=== PATIENT | male | born 1950 | race African-American/Black ===

== ENCOUNTER 2017-02-13 05:54 | Inpatient (IN) | payer BC, OTHER ==
[2017-01-22 10:32] VITALS: BMI 30.3
--- NOTE | 2017-02-12 08:45 | HP ---
Satellite [facility] - Chief Complaint Chief Complaint: left knee pain - Past Medical History Allergies/Adverse Reactions: Allergies Allergy/AdvReac Type Severity Reaction Status Date / Time No Known Drug Allergies Allergy Verified 01/22/17 10:18 - Current Medications Current Medications: Home Medications Medication Instructions Recorded Amlodipine Besylate [Norvasc -] 2.5 mg PO DAILY 06/30/13 Hydrochlorothiazide [Hctz -] 25 mg PO DAILY 06/30/13 Lisinopril [Prinivil -] 40 mg PO DAILY 06/30/13 Multivit-Min/FA/Lycopene/Lut 1 each PO DAILY 06/30/13 [Centrum Silver Tablet] Pravastatin Sodium [Pravachol -] 10 mg PO DAILY 06/30/13 Insulin (Levemir) [Levemir Flexpen 40 units SQ HS 11/24/14 -] Insulin NPH Human Isophane 13 unit SQ BID 01/22/17 [Novolin N] Oxycodone HCl/Acetaminophen 1 tab PO Q6H PRN 01/22/17 [Percocet 5-325 mg Tablet -] Satellite Physical Exam - Physical Examination General Appearance: Well Nourished, Well Developed, Alert & Oriented x3 ENT: Clear Lung: Normal air movement Heart: Regular rate & rhythm Extremities: Other (left knee- + swelling, + ttp, decr rom, nvi xrays show tricompartmental djd) Neurological: Intact, Alert, Oriented Satellite Impression/Plan - Impression/Plan Impression: left knee djd Operative Procedure: left nigel tkr Date to be Performed: 02/13/17
[2017-02-13] MEDS ORDERED: CELECOXIB 200 MG CAPSULE PO ONE (06:04)
[2017-02-13] MEDS ORDERED: CEFAZOLIN 2 GM in DEXTROSE 5%-WATER - 50 ML IVPB ONE (06:04)
[2017-02-13] MEDS ORDERED: GABAPENTIN 300 MG CAPSULE (FP) PO ONE (06:04)
[2017-02-13] MEDS ORDERED: TRANEXAMIC ACID 1000 MG/10 ML VIAL IVPUSH ONE (06:04)
[2017-02-13] MEDS ORDERED: oxyCODONE HCL 10 MG SUSTAINED ACTING TABLET PO ONE (06:04)
[2017-02-13] MEDS ORDERED: VANCOMYCIN 1,000 MG VIAL (RESTRICTED TO ID ONLY) ONE (07:09)
[2017-02-13] MEDS ORDERED: ceFAZolin SODIUM 1 GM VIAL ONE ×2 (07:09→07:47)
[2017-02-13] MEDS ORDERED: BUPIVACAINE HCL/PF 0.5% (5MG/ML) 10 ML VIAL ONE (07:41)
[2017-02-13] MEDS ORDERED: ONDANSETRON 4 MG/2 ML VIAL ONE (07:47)
[2017-02-13] MEDS ORDERED: PROPOFOL 20 ML ONE ×2 (07:47)
[2017-02-13] MEDS ORDERED: DEXAMETHASONE SOD PHOSPHATE 4 MG/1 ML VIAL ONE (07:47)
[2017-02-13] MEDS ORDERED: MIDAZOLAM HCL 2 MG/2 ML SINGLE DOSE VIAL ONE ×2 (07:48→09:16)
[2017-02-13] MEDS ORDERED: ONDANSETRON 4 MG/2 ML VIAL IVPB PRN (10:14)
[2017-02-13] MEDS ORDERED: MAGNESIUM HYDROX 2400MG/30ML ORAL SUSPENSION 30 ML CUP PO PRN (10:14)
[2017-02-13] MEDS ORDERED: MAG HYDROX/AL HYDROX/SIMETH 30 ML UNIT-DOSE CUP PO PRN (10:14)
[2017-02-13] MEDS ORDERED: LACTATED RINGERS SOLUTION 1,000 ML IV SCH (10:15)
--- NOTE | 2017-02-13 10:17 | OP ---
Operative Note - Note: Operative Date: 02/13/17 (christin) Pre-Operative Diagnosis: left knee djd Operation: left nigel tkr Post-Operative Diagnosis: Same as Pre-op Surgeon: Pilo Bragg Historical Guide: Casimiro Chiu) Anesthesiologist/SYNTHETIC GEM PRESS OPERATOR: Crystal Mejia Anesthesia: Spinal, Local Specimens Removed: bone fragments Estimated Blood Loss (mls): 50 (tourniquet) Operative Report Dictated: Yes
[2017-02-13] MEDS ORDERED: oxyCODONE HCL 5 MG TABLET PO PRN (11:19)
[2017-02-13] MEDS: ACETAMINOPHEN 325 MG TABLET (FP) PO SCH ×3 (11:35→23:12)
[2017-02-13] MEDS: INSULIN SLIDING SCALE (NOVOLOG) 1 VIAL SQ SCH ×3 (13:05→21:31)
[2017-02-13] MEDS ORDERED: INSULIN (NOVOLOG) ASPART 100 UNITS/ML 10ML VIAL ONE ×2 (16:11→21:27)
[2017-02-13] MEDS: CEFAZOLIN 2 GM/D5W 50 ML IVPB SCH ×2 (16:14→23:11)
--- NOTE | 2017-02-13 16:37 | OP ---
DATE OF OPERATION: 02/13/2017 PREOPERATIVE DIAGNOSIS: Degenerative joint disease, left knee. POSTOPERATIVE DIAGNOSIS: Degenerative joint disease, left knee. PROCEDURE: Left total knee replacement with robotic-assisted navigation (MAKOplasty). SURGICAL ATTENDING: Pilo Bragg MD DONOR RECRUITER: Casimiro Chiu MD and HUMAIRA Mortensen. ANESTHESIA: Regional and spinal. CLOSURE: A Triathlon knee system with a 4 femur, 5 tibia, 11 polyethylene, 38 patella, a Corkscrew anchor for patella tendon. ESTIMATED BLOOD LOSS: Negligible. TOURNIQUET TIME: Approximately 80 minutes. COMPLICATIONS: None. CONDITION TO RECOVERY ROOM: Stable condition. DESCRIPTION OF OPERATIVE PROCEDURE: Patient was taken to the operating room on February 13, 2017. Regional and spinal anesthesia was administered by the anesthesiologist. IV Kefzol and TXA were administered prophylactically prior to the case. A well-padded pneumatic tourniquet was placed on the left proximal thigh. Left lower extremity was prepped and draped in the usual sterile fashion. A midline longitudinal incision about 12 cm was incised centered over the patella. Hemostasis achieved with Bovie cautery. This was done after the leg was exsanguinated with an Esmarch, and the tourniquet was inflated to 175 mmHg. Sharp dissection was carried down to the level of the extensor mechanism which should be sufficient for to perform the procedure. Medial parapatellar arthrotomy was then performed, exposing the knee joint. The patella was inverted. The knee was flexed up. A subperiosteal dissection was done on the anteromedial proximal tibia until the knee was able to be brought forward. This was facilitated by taking the menisci and the cruciate ligaments. There was a large free ossicle within the body of the patella tendon. This was dissected out flush with the bone, preserving as much of the patella tendon as possible. Checkpoints were placed both in the femur and the tibia. Two bicortical pins were drilled in the femur anterior to posterior, proximal to the knee joint, through the incision already made. Two pins were placed 1 handbreadth below the tibial tubercle through 2 small stab incisions. Two of these pins were fastened to the navigation arrays. The knee was registered with the navigation device with center of rotation of the hip, medial and lateral malleoli, multiple points both on the femur and the tibia. Proper registration was confirmed by "popping the bubbles." The osteophytes were then removed. Tensioning in both flexion and extension was performed, and using this data, we are able to manipulate the virtual position of the components to optimize and equalize gaping in both extension and in flexion. The robot was then brought into the field and was registered and was then used to make the cuts on the tibia and the femur. Spacer blocks were used in flexion and extension to confirm equal tension with 11-mm insert. The number 4 box was used to cut the femur notch. A trial number 4 femoral component was malleted into place. A number 5 tibial component with an 11-mm insert was inserted, and the knee was taken through a range of motion to allow the component to "find itself." It was then clipped into place and confirmed to be in the ideal position based on the navigation device. All the navigation arrays and checkpoints were removed. The patella was calibrated for thickness and osteotomized down to the appropriate level. A 38 lollipop was used to drill the lug holes in the patella, and a trial component was applied. The knee was taken through a range of motion, found to go full extension to full flexion with excellent tensioning and stability throughout. Trial components were removed. The keel was made in the tibia. The real component was then cemented in using modern generation cement techniques with antibiotic cement. The knee was post-antibiotic irrigated. The knee was thoroughly inspected to remove any excess cement. The knee was tensioned in extension to allow the cement to compress. The real polyethylene was then malleted and clipped into place. Range of motion, stability, and tracking of the patella was as described earlier to be excellent. The knee was post-antibiotic irrigated again. Vancomycin powder was placed into the wound. The parapatellar arthrotomy was closed using No. 1 Vicryl interrupted suture. A corkscrew anchor was placed into the tibial tubercle and used to adjuvant fixate the patella insertion as part of it needed to be taken down to remove the ossicle. Range of motion of the knee into full extension revealed good tension on the patella tendon. The subcutaneous was closed in 0 and 2-0 Vicryl, 3-0 Monocryl subcuticular, with skin glue for the skin, 4-0 undyed Vicryl for the pin sites. All checkpoints and pins were removed. A sterile pressure dressing was placed on the knee. X-ray revealed good position of the components. Patient was awakened from anesthesia and transferred to recovery room in stable condition. No complications. Estimated blood loss: Negligible. Tourniquet time approximately 80 minutes. Cody [id number]
[2017-02-13] MEDS: oxyCODONE HCL 5 MG TABLET PO PRN (20:13)
[2017-02-13] MEDS: oxyCODONE HCL 10 MG SUSTAINED ACTING TABLET PO SCH (21:18)
[2017-02-13] MEDS: SENNOSIDES/DOCUSATE COMBO (SENNA PLUS) TABLET (UD) PO SCH (21:18)
[2017-02-13] MEDS: GABAPENTIN 300 MG CAPSULE (FP) PO SCH (21:18)
[2017-02-13] MEDS: INSULIN DETEMIR 100 UNITS/ML MDV SQ SCH (21:30)
[2017-02-13] MEDS ORDERED: INSULIN NPH HUMAN ISOPHANE 20 UNIT SQ SCH (22:00)
[2017-02-13] MEDS ORDERED: INSULIN SQ SCH (22:00)
[2017-02-13] MEDS ORDERED: INSULIN NPH HUMAN ISOPHANE SQ SCH (22:00)
[2017-02-14] MEDS: oxyCODONE HCL 5 MG TABLET PO PRN ×2 (05:12→14:03)
[2017-02-14] MEDS: ACETAMINOPHEN 325 MG TABLET (FP) PO SCH ×4 (05:12→23:27)
[2017-02-14] MEDS: INSULIN SLIDING SCALE (NOVOLOG) 1 VIAL SQ SCH ×4 (06:57→21:50)
[2017-02-14] MEDS: ASPIRIN 325 MG TABLET PO SCH (08:22)
--- NOTE | 2017-02-14 08:26 | PN ---
Progress Note (short form) - Note Progress Note: Ortho Pt seen and examined s/p left nigel tkr pod #1 Selected Entries 02/14/17 06:00 Temperature 98.6 F Pulse Rate 81 Respiratory 18 Rate Blood Pressure 162/80 dressing c/d/i, calf soft ,nt rom 0-50, nvi a/p PT dvt ppx pain control d/c to rehab tomorrow if stable
[2017-02-14 08:46] LABS: MCH 30.8 pg (25.7-33.7); MCHC 33.4 g/dl (32.0-35.9); MEAN CELL VOLUME 92.1 fl (80-96); MEAN PLT VOLUME 9.2 fl (7.5-11.1); PLATELET COUNT 237 K/MM3 (134-434); RDW 13.4 % (11.9-15.9); WHITE BLOOD COUNT 14.8 K/mm3 (4.0-10.8)
[2017-02-14] MEDS: SENNOSIDES/DOCUSATE COMBO (SENNA PLUS) TABLET (UD) PO SCH ×2 (09:27→21:48)
[2017-02-14] MEDS: LISINOPRIL 20 MG TABLET (FP) PO SCH (09:27)
[2017-02-14] MEDS: oxyCODONE HCL 10 MG SUSTAINED ACTING TABLET PO SCH ×2 (09:28→21:49)
[2017-02-14] MEDS: amLODIPine BESYLATE 2.5 MG TABLET (FP) PO SCH (09:29)
[2017-02-14] MEDS: PANTOPRAZOLE 40 MG TABLET (FP) PO SCH (09:29)
[2017-02-14] MEDS: MULTIVITAMINS (DAILY MVI) TABLET (FP) PO SCH (09:29)
[2017-02-14] MEDS: GABAPENTIN 300 MG CAPSULE (FP) PO SCH ×2 (09:30→21:49)
[2017-02-14] MEDS: HYDROCHLOROTHIAZIDE 25 MG TABLET (FP) PO SCH (09:30)
[2017-02-14] MEDS ORDERED: PRAVASTATIN SODIUM 10 MG PO SCH (10:00)
[2017-02-14] MEDS ORDERED: PATIENT'S OWN MEDICATION (NON-FORMULARY) (Lisinopril [Prinivil -] 40 MG) PO SCH (10:00)
--- NOTE | 2017-02-14 11:11 | PN ---
Progress Note (short form) - Note Progress Note: 66M POD1 s/p left TKR under spinal anesthetic with adductor canal and selective tibial blocks for post operative pain control. Pt is doing well, states that pain is well controlled, reports no anesthetic complications. Sensory and motor function is intact in both lower extremities.
[2017-02-14] MEDS ORDERED: INSULIN (NOVOLOG) ASPART 100 UNITS/ML 10ML VIAL ONE ×2 (16:48→21:46)
[2017-02-14] MEDS: INSULIN DETEMIR 100 UNITS/ML MDV SQ SCH (21:50)
[2017-02-15 05:55] VITALS: BP 129/92; PULSE 90; TEMP 99.4
[2017-02-15] MEDS: ACETAMINOPHEN 325 MG TABLET (FP) PO SCH ×2 (06:05→11:54)
[2017-02-15] MEDS ORDERED: INSULIN (NOVOLOG) ASPART 100 UNITS/ML 10ML VIAL ONE (06:50)
[2017-02-15] MEDS: oxyCODONE HCL 5 MG TABLET PO PRN ×2 (06:53→12:12)
[2017-02-15] MEDS: INSULIN SLIDING SCALE (NOVOLOG) 1 VIAL SQ SCH ×2 (06:54→11:59)
[2017-02-15] MEDS: ASPIRIN 325 MG TABLET PO SCH (08:25)
--- NOTE | 2017-02-15 08:34 | PN ---
Progress Note (short form) - Note Progress Note: Ortho Pt seen and examined s/p left nigel tkr pod #2 Selected Entries 02/15/17 05:53 Temperature 99.4 F Pulse Rate 90 Respiratory 18 Rate Blood Pressure 129/92 Laboratory Tests 02/14/17 07:51 WBC 14.8 H Hgb 14.0 Hct 41.9 Plt Count 237 dressing c/d/i, calf soft ,nt rom 0-70, nvi a/p PT dvt ppx pain control d/c to rehab today f/u in 1 week
--- NOTE | 2017-02-15 08:35 | DS ---
Physical Examination Vital Signs: Vital Signs Temperature 99.4 F 02/15/17 05:53 Pulse Rate 90 02/15/17 05:53 Respiratory Rate 18 02/15/17 05:53 Blood Pressure 129/92 02/15/17 05:53 O2 Sat by Pulse Oximetry (%) 94 L 02/15/17 05:53 Labs: CBC, BMP 02/14/17 07:51 Discharge Summary Reason For Visit: OSTEOARTHRITIS Procedures: Principal: s/p left nigel tkr Hospital Course: admitted for elective left nigel tkr, uneventful post-op, stable for d/c Condition: Good - Instructions Diet, Activity, Other Instructions: Post-op Instructions-Total Knee Replacement Call the office for a follow-up appointment in 1 week - [phone] Aspirin 325mg daily for 6 weeks. Pain medication was sent into your pharmacy. Apply Graduated Compression Stockings (TEDs) to both lower extremities- remove daily for hygiene ONLY Apply Sequential Compression Device (SCDs) to both Lower extremities remove for PT and hygiene ONLY Apply cold packs to affected area for 15 minutes every 2 hours. Physical Therapist will come to your home for the first 5 days. You will be set up with outpatient PT at your first post-operative visit. Patient may ambulate as tolerated-encourage self care (at least every 2-3 hours while awake) with walker or cane Maintain Aquacel (waterproof) dressing to operative wound (will be removed by surgeon at first office visit) Shower with Aquacel dressing in place-if Aquacel integrity compromised, remove and apply dry sterile dressing and notify Orthopedist. DO NOT SHOWER unless Orthopedists approves without Aquacel dressing CONTACT THE OFFICE FOR ANY CHANGE IN YOUR CONDITION (for example-fever greater than 102 degrees,excessive bleeding from operative site, purulent drainage, severe swelling or pain) GO TO THE EMERGENCY ROOM IF THERE IS A MEDICAL EMERGENCY Knee Precautions: * Keep a rolled towel under affected heel while in bed or chair (to keep knee in extension) * Keep affected leg elevated except during mealtimes * DO NOT PLACE PILLOW UNDER AFFECTED KNEE * If you have any questions, please do not hesitate to call the office - [phone]. Referrals: Casimiro Chiu MD [Staff Physician] - Disposition: ASSISTED FACILITY - Home Medications Comprehensive Discharge Medication List: Ambulatory Orders Amlodipine Besylate [Norvasc -] 2.5 mg PO DAILY 06/30/13 Hydrochlorothiazide [Hctz -] 25 mg PO DAILY 06/30/13 Lisinopril [Prinivil -] 40 mg PO DAILY 06/30/13 Multivit-Min/FA/Lycopene/Lut [Centrum Silver Tablet] 1 each PO DAILY 06/30/13 Pravastatin Sodium [Pravachol -] 10 mg PO DAILY 06/30/13 Insulin (Levemir) [Levemir Flexpen -] 40 units SQ HS 11/24/14 Insulin NPH Human Isophane [Novolin N] 13 unit SQ BID 01/22/17 Aspirin [ASA -] 325 mg PO DAILY@0800 tablet 02/13/17 Insulin NPH Human Isophane [Novolin N] 20 unit SQ HS 02/13/17 Oxycodone HCl/Acetaminophen [Percocet 5-325 mg Tablet -] 1 - 2 tab PO Q6H #50 tab MDD 8 02/13/17
[2017-02-15 09:26] LABS: MCH 30.9 pg (25.7-33.7); MCHC 33.5 g/dl (32.0-35.9); MEAN CELL VOLUME 92.1 fl (80-96); MEAN PLT VOLUME 9.3 fl (7.5-11.1); PLATELET COUNT 194 K/MM3 (134-434); WHITE BLOOD COUNT 13.7 K/mm3 (4.0-10.8)
[2017-02-15] MEDS: oxyCODONE HCL 10 MG SUSTAINED ACTING TABLET PO SCH (09:31)
[2017-02-15] MEDS: PANTOPRAZOLE 40 MG TABLET (FP) PO SCH (09:32)
[2017-02-15] MEDS: SENNOSIDES/DOCUSATE COMBO (SENNA PLUS) TABLET (UD) PO SCH (09:32)
[2017-02-15] MEDS: LISINOPRIL 20 MG TABLET (FP) PO SCH (09:32)
[2017-02-15] MEDS: amLODIPine BESYLATE 2.5 MG TABLET (FP) PO SCH (09:32)
[2017-02-15] MEDS: HYDROCHLOROTHIAZIDE 25 MG TABLET (FP) PO SCH (09:32)
[2017-02-15] MEDS: GABAPENTIN 300 MG CAPSULE (FP) PO SCH (09:33)
[2017-02-15] MEDS: MULTIVITAMINS (DAILY MVI) TABLET (FP) PO SCH (10:23)
--- NOTE | 2017-02-15 15:12 | PATH ---
Surgical Pathology Report Patient Name: DEJA NOVA Med. Rec. #: [id number] /Age/Gender: 1950 (Age: 66) / M Account: [id number] Location: [facility]END[facility] TO [facility] Taken: 02/13/2017 Received: 02/13/2017 Reported: 02/15/2017 Physicians: Cody Orellana M.D. Specimen(s) Received LEFT KNEE BONES Clinical History Left knee osteoarthritis Final Diagnosis BONE, LEFT KNEE, TOTAL KNEE REPLACEMENT MAKOPLASTY: CONSISTENT WITH DEGENERATIVE JOINT DISEASE. Electronically Signed Moustapha Cobos M.D. Gross Description Received in formalin labeled "left knee bones" is a 13.5 x 10.0 x 2.5 cm aggregate of multiple portions of bone with tibial clot toe and femoral condyles and soft tissue. The tibial plateau measures 8.3 x 6.1 x 1.5 cm. There is a 2.6 cm in greatest dimension area of eburnation present. The remaining articular surfaces are downs-yellow and diffusely granular. The underlying trabecular bone is downs-yellow and heterogeneous. Sorority Supervisor sections are submitted in one cassette, following decalcification. /02/14/201702/14/2017
== END 2017-02-15 13:36 | DRG 470 ==
LOC: FM/S 05:54
PROVIDERS: ADMIT Orthopaedic Surgery; ATTEND Orthopaedic Surgery
PROC: 0SRD0J9 Replacement of Left Knee Joint with Synthetic Substitute, Cemented, Open Approach (ICD-10-PCS; principal; 2017-02-13 08:31)
DX: M17.12 Unilateral primary osteoarthritis, left knee (principal); I10 Essential (primary) hypertension; E11.9 Type 2 diabetes mellitus without complications; E78.2 Mixed hyperlipidemia; I11.9 Hypertensive heart disease without heart failure
CPT/HCPCS: 36415; 73560-TC-LT; 85027; 88305-TC; 88311-TC; 94010; 94760; 97116-GP; 97162-GP

== ENCOUNTER 2019-06-24 05:53 | Inpatient (IN) | payer BC, OTHER ==
[2019-06-24] MEDS ORDERED: TRANEXAMIC ACID 1000 MG/10 ML VIAL IVPUSH ONE (06:07)
[2019-06-24] MEDS ORDERED: CEFAZOLIN 3 GM in DEXTROSE 5%-WATER - 100 ML IVPB ONE (06:07)
[2019-06-24] MEDS ORDERED: CELECOXIB 200 MG CAPSULE PO ONE (06:07)
[2019-06-24] MEDS ORDERED: BUPIVACAINE LIPOSOME/PF (EXPAREL) 266 MG/20 ML VIAL ONE (06:31)
[2019-06-24] MEDS ORDERED: SODIUM CHLORIDE 0.9% P/F 10 ML VIAL IJ ONE (06:31)
[2019-06-24] MEDS ORDERED: MIDAZOLAM HCL 2 MG/2 ML SINGLE DOSE VIAL ONE (06:31)
[2019-06-24] MEDS ORDERED: DEXTROSE 50%-WATER 25 GM/50 ML DISP.SYRIN ONE (06:40)
[2019-06-24] MEDS ORDERED: PROPOFOL 20 ML ONE (07:12)
[2019-06-24 07:14] VITALS: BMI 33.1
[2019-06-24] MEDS ORDERED: VANCOMYCIN 1,000 MG VIAL (RESTRICTED TO ID ONLY) ONE (07:16)
[2019-06-24] MEDS ORDERED: ceFAZolin SODIUM 1 GM VIAL ONE ×4 (07:16→22:06)
--- NOTE | 2019-06-24 07:58 | HP ---
Satellite H - Chief Complaint Chief Complaint: right knee pain - Past Medical History Allergies/Adverse Reactions: Allergies Allergy/AdvReac Type Severity Reaction Status Date / Time No Known Drug Allergies Allergy Verified 06/16/19 11:59 - Current Medications Current Medications: Home Medications Medication Instructions Recorded Amlodipine Besylate [Norvasc -] 5 mg PO DAILY 06/30/13 Lisinopril [Prinivil -] 40 mg PO DAILY 06/30/13 Insulin (Levemir) [Levemir Flexpen 34 units SQ HS 11/24/14 -] Oxycodone HCl/Acetaminophen 1 - 2 tab PO Q6H #50 tab MDD 8 02/13/17 [Percocet 5-325 mg Tablet -] Atorvastatin Ca [Lipitor] 10 mg PO DAILY 06/16/19 Gabapentin 100 mg PO DAILY 06/16/19 Tadalafil [Cialis] 5 mg PO DAILY 06/16/19 Insulin Regular [NOVOLIN R VIAL 12 unit SQ ACDIN 06/24/19 *IVPUSH / ER / ICU Only*] Insulin Regular [NOVOLIN R VIAL 12 unit SQ HS 06/24/19 *IVPUSH / ER / ICU Only*] Insulin Regular [NOVOLIN R VIAL 20 unit SQ DAILY 06/24/19 *IVPUSH / ER / ICU Only*] Multivitamins [Tab-A-Vit -] 1 tab PO DAILY 06/24/19 Satellite Physical Exam - Physical Examination Vital Signs: Vital Signs Period Temp Pulse Resp BP Sys/Siddiqi Pulse Ox Last 24 Hr 98.2 F 65 18 140/72 General Appearance: Well Nourished, Well Developed, Alert & Oriented x3 ENT: Clear Lung: Normal air movement Extremities: Other (right knee-+ swelling, + ttp ,decr rom ,nvi, xrays show tricompartmental djd) Neurological: Intact, Alert, Oriented Satellite Impression/Plan - Impression/Plan Impression: right knee djd Operative Procedure: right nigel tkr Date to be Performed: 06/24/19
[2019-06-24] MEDS ORDERED: MAGNESIUM HYDROX 2400MG/30ML ORAL SUSPENSION 30 ML CUP PO PRN (07:59)
[2019-06-24] MEDS ORDERED: ONDANSETRON 4 MG/2 ML VIAL IVPUSH PRN ×2 (07:59→10:55)
[2019-06-24] MEDS ORDERED: MAG HYDROX/AL HYDROX/SIMETH 30 ML UNIT-DOSE CUP PO PRN (07:59)
[2019-06-24] MEDS ORDERED: LACTATED RINGERS SOLUTION 1,000 ML IV SCH (08:00)
[2019-06-24] MEDS ORDERED: TRANEXAMIC ACID 1000 MG/10 ML VIAL ONE (08:32)
[2019-06-24] MEDS ORDERED: PATIENT'S OWN MEDICATION (NON-FORMULARY) (Lisinopril [Prinivil -] 40 MG) PO SCH (10:00)
[2019-06-24] MEDS ORDERED: INSULIN REGULAR HUMAN 100 UNITS/ML *VIAL SQ SCH ×3 (10:00→22:00)
--- NOTE | 2019-06-24 10:21 | OP ---
Operative Note - Note: Operative Date: 06/24/19 (christin) Pre-Operative Diagnosis: right knee djd Operation: right nigel tkr Post-Operative Diagnosis: Same as Pre-op Surgeon: Pilo Bragg Manufacturing Production Technician: Cuco Hanks) Anesthesiologist/UNIT SECY: Godwin Menard Anesthesia: Spinal, Local Specimens Removed: bone fragments Estimated Blood Loss (mls): 100
[2019-06-24] MEDS ORDERED: HYDROmorphone HCL CARPU-JECT 1 MG/1 ML DISP.SYRIN IVPUSH PRN (10:36)
[2019-06-24] MEDS ORDERED: oxyCODONE HCL 5 MG TABLET PO PRN (10:55)
[2019-06-24] MEDS: LACTATED RINGERS SOLUTION 1,000 ML IV SCH (11:50)
--- NOTE | 2019-06-24 12:13 | SPEC ---
DATE OF OPERATION: 06/24/2019 PREOPERATIVE DIAGNOSIS: Degenerative joint disease, right knee. POSTOPERATIVE DIAGNOSIS: Degenerative joint disease, right knee. PROCEDURE: Right total knee replacement with robotic-assisted navigation (Makoplasty). SURGICAL ATTENDING: Pilo Bragg MD FOOD PREPARATION KITCHEN AIDE: HUMAIRA Mortensen SECOND SOLAR SALES REPRESENTATIVE: Casimiro Chiu MD ANESTHESIA: Regional and spinal. CLOSURE: A cemented Triathlon knee system with a 5 femur, 6 tibia, 9 polyethylene, 38 patella, number 1 Vicryl fascia, 0 and 2-0 for subcutaneous, 3-0 Monocryl subcuticular with skin glue for skin, 4-0 undyed Vicryl for pin sites. ESTIMATED BLOOD LOSS: Less than 100 mL. COMPLICATIONS: None. CONDITION: To recovery room in stable condition. DESCRIPTION OF OPERATIVE PROCEDURE: Patient was taken to the operating room on June 24, 2019. Regional and general anesthesia was administered by the anesthesiologist. IV Kefzol and TXA were administered by the anesthesiologist. Well-padded pneumatic tourniquet was placed on the proximal thigh. The right lower extremity was prepped and draped in the usual sterile fashion. The leg was exsanguinated with an Esmarch bandage, and tourniquet was inflated to 275 mmHg. A 12 to 15-cm longitudinal midline incision was incised while centered over the patella. The dissection was carried down to the level of the extensor mechanism with sufficient flaps made to adequately perform the procedure. A medial parapatellar arthrotomy was then performed. We made a cuff of tissue on the patella for later closure. The patella was inverted, the knee was flexed up. The fat pad was excised. The subperiosteal dissection was on the anteromedial proximal tibia around towards the direction of the MCL. The ACL and the PCL were transected and debrided. The meniscal remnants of the medial and lateral meniscus were debrided and removed. This allowed the knee to be able to "be brought forward." The checkpoints were malleted into the tibia and into the femur. Two threaded pins were drilled anteroposteriorly proximal to the knee through the previous incision, through the anterior cortex, then just engaging the posterior cortex. To these pins was assembled the femoral navigation array. One handbreadth below the tibial tubercle, 2 stab incisions were used to drill 2 threaded pins in parallel fashion into the tibia, again through the anterior cortex and just engaging the posterior cortex. To these pins was fastened the tibial arrays. The knee was then registered with the navigation device with center of rotation of the hip, medial and lateral malleoli, both checkpoints, and multiple points on both the femur and the tibia to ensure excellent registration. The navigation device was directed off the "top of the bubbles" on both the femur and the tibia. The navigation passed within less than 0.5 mm to plan. The knee was then thoroughly inspected to remove all osteophytes both medially, laterally, and on the femur and the tibia, and whatever osteophytes were available for dissection. The knee was then taken to extension and to flexion, and stressed in both varus and valgus to assess flexion gaps. The virtual position of the components on the navigation device were then manipulated to optimize the position and to ensure equal gaps in both flexion and extension, and both medially and laterally. The robot was then brought into the field and was registered. The cuts were then made both on the femur and on the tibia as to plan. All osteophytes posteriorly were then removed as well. The gaps were then measured again in flexion and extension to be equal in both flexion and extension and medial and laterally. The femoral notch was then made, as we were doing a posterior stabilizing component, with the appropriate sized box. Trial reduction of the femur achieved excellent [id number] fit. A tibial baseplate of appropriate polyethylene thickness was "floated in the knee." It was ensured to be in the excellent position by navigation devices and was pinned in place. The knee was taken through a range of motion and found to have excellent stability throughout flexion and extension. The patella was calibrated for thickness and osteotomized down to the appropriate level. The appropriate lollipop was used to drill the lug holes in the patella and the trial button was applied. The knee was taken through a range of motion and found to have excellent tracking of the patella, and patella from full extension to full flexion. Trial components were removed, the keel was punched and drilled, and a sclerotic bone on the tibia was drilled to help with cement interdigitation. The knee was thoroughly irrigated with the pulse antibiotic environmental compliance technician. The real components were then cemented in using monitored arrangement cement techniques with antibiotic cement, and pressurization and extension. After the cement was hardened, the knee was thoroughly inspected to remove any extra cement. The real polyethylene component was then clipped into place. Range of motion, stability, and tracking were as described earlier. The checkpoints and the pins were removed. The knee was thoroughly irrigated with antibiotic irrigation. Vancomycin powder was placed into the knee for antibiotic prophylaxis. The medial parapatellar arthrotomy was then closed using number 1 Vicryl interrupted suture. After closure of the deep layer, the knee was taken through a range of motion, and found to have excellent stability of the patella with no dislocation and no undue tension on the repair. The subcutaneous was pulse antibiotic irrigated, and was then closed with 2-0 Vicryl, 3-0 Monocryl subcuticular with the skin glue for the skin. The distal tibial pin site was irrigated thoroughly as well and then closed with 4-0 undyed Vicryl. A sterile Aquacel dressing was applied, followed by a Vyas dressing. Tourniquet was deflated. Total tourniquet time was approximately 75 minutes. No complications. Patient was awakened from anesthesia and transferred to recovery room in stable condition. Postoperative x-rays revealed excellent position of the components. Cody [id number]
[2019-06-24] MEDS: PANTOPRAZOLE 40 MG TABLET (FP) PO SCH (12:27)
[2019-06-24] MEDS: oxyCODONE HCL 5 MG TABLET PO PRN ×2 (14:08→20:27)
[2019-06-24] MEDS ORDERED: DEXTROSE 5%-WATER 100 ML IVPB ONE ×2 (15:27→22:06)
[2019-06-24] MEDS: CEFAZOLIN 3 GM in DEXTROSE 5%-WATER 100 ML IVPB SCH (16:04)
[2019-06-24] MEDS: INSULIN (NOVOLOG) ASPART 100 UNITS/ML 10ML VIAL SQ SCH ×2 (16:52→21:39)
[2019-06-24] MEDS: SENNOSIDES/DOCUSATE COMBO (SENNA PLUS) TABLET (UD) PO SCH (21:38)
[2019-06-24] MEDS: INSULIN (LEVEMIR) 100 UNITS/ML UNITS SQ SCH (21:41)
[2019-06-24] MEDS ORDERED: INSULIN DETEMIR SQ SCH (22:00)
[2019-06-24] MEDS ORDERED: [UNRECOGNIZED DRUG - OTHER] SQ SCH (22:00)
[2019-06-25] MEDS: CEFAZOLIN 3 GM in DEXTROSE 5%-WATER 100 ML IVPB SCH (00:12)
[2019-06-25] MEDS: oxyCODONE HCL 5 MG TABLET PO PRN ×5 (01:27→19:49)
[2019-06-25] MEDS: INSULIN (NOVOLOG) ASPART 100 UNITS/ML 10ML VIAL SQ SCH ×3 (07:08→21:49)
[2019-06-25 07:37] LABS: HEMATOCRIT 36.7 % (35.4-49); HEMOGLOBIN 12.2 GM/dl (11.7-16.9); MCH 31.8 pg (25.7-33.7); MCHC 33.3 g/dl (32.0-35.9); MEAN CELL VOLUME 95.6 fl (80-96); MEAN PLT VOLUME 9.2 fl (7.5-11.1); PLATELET COUNT 187 K/MM3 (134-434); RBC 3.84 M/mm3 (4.00-5.60); RDW 12.9 % (11.9-15.9); WHITE BLOOD COUNT 12.2 K/mm3 (4.0-10.8)
[2019-06-25] MEDS: ASPIRIN 325 MG TABLET PO SCH (07:55)
--- NOTE | 2019-06-25 08:53 | PN ---
Progress Note (short form) - Note Progress Note: Ortho Pt seen and examined s/p right nigel tkr pod #1 Selected Entries 06/25/19 06:00 Temperature 98.2 F Pulse Rate 67 Respiratory 18 Rate Blood Pressure 150/68 Laboratory Tests 06/25/19 07:05 WBC 12.2 H Hgb 12.2 Hct 36.7 Plt Count 187 dressing c/d/i, calf soft, nt rom 0-30, nvi a/p PT dvt ppx pain control d/c planning
[2019-06-25] MEDS: LISINOPRIL 20 MG TABLET (FP) PO SCH (09:41)
[2019-06-25] MEDS: ATORVASTATIN CA 10 MG TABLET (FP) PO SCH (09:41)
[2019-06-25] MEDS: amLODIPine BESYLATE 5 MG TABLET (FP) PO SCH (09:41)
[2019-06-25] MEDS: PANTOPRAZOLE 40 MG TABLET (FP) PO SCH (09:41)
[2019-06-25] MEDS: MULTIVITAMINS (DAILY MVI) TABLET (FP) PO SCH (09:41)
[2019-06-25] MEDS: GABAPENTIN 100 MG CAPSULE (FP) PO SCH (09:41)
[2019-06-25] MEDS: SENNOSIDES/DOCUSATE COMBO (SENNA PLUS) TABLET (UD) PO SCH ×2 (09:42→21:48)
[2019-06-25] MEDS: LACTATED RINGERS SOLUTION 1,000 ML IV SCH (09:45)
[2019-06-25] MEDS ORDERED: oxyCODONE HCL 5 MG TABLET PO PRN (11:18)
--- NOTE | 2019-06-25 14:32 | PN ---
Progress Note (short form) - Note Progress Note: 68M POD1 s/p R TKR under spinal anesthetic with peripheral nerve block. Pt states that pain is well controlled and reports no anesthetic complications. AVSS. Motor and sensory exam at patient's baseline. Continue current regimen.
[2019-06-25] MEDS: INSULIN (LEVEMIR) 100 UNITS/ML UNITS SQ SCH (21:48)
[2019-06-26] MEDS: oxyCODONE HCL 5 MG TABLET PO PRN ×3 (00:02→09:25)
[2019-06-26] MEDS: INSULIN (NOVOLOG) ASPART 100 UNITS/ML 10ML VIAL SQ SCH (06:15)
[2019-06-26] MEDS: ASPIRIN 325 MG TABLET PO SCH (07:47)
[2019-06-26 07:49] LABS: HEMOGLOBIN 11.8 GM/dl (11.7-16.9); MCH 32.2 pg (25.7-33.7); MCHC 32.8 g/dl (32.0-35.9); MEAN CELL VOLUME 98.1 fl (80-96); MEAN PLT VOLUME 9.6 fl (7.5-11.1); PLATELET COUNT 181 K/MM3 (134-434); RBC 3.68 M/mm3 (4.00-5.60); RDW 13.3 % (11.9-15.9); WHITE BLOOD COUNT 13.1 K/mm3 (4.0-10.8)
--- NOTE | 2019-06-26 08:38 | DS ---
Physical Examination Vital Signs: Vital Signs Temperature 99.2 F 06/26/19 06:00 Pulse Rate 92 H 06/26/19 06:00 Respiratory Rate 18 06/26/19 06:00 Blood Pressure 145/70 06/26/19 06:00 O2 Sat by Pulse Oximetry (%) 94 L 06/26/19 06:00 Labs: CBC, BMP 06/26/19 05:15 Discharge Summary Problems reviewed: Yes Reason For Visit: OSTEOARTHRITIS Procedures: Principal: right tkr Hospital Course: admitted for elective right nigel tkr, post-op as per protocol, stable for d/c Condition: Good - Instructions Diet, Activity, Other Instructions: Post-op Instructions-Total Knee Replacement Call the office for a follow-up appointment in 1 week - [phone] Aspirin 325mg daily for 6 weeks. Pain medication was sent into your pharmacy. Apply Graduated Compression Stockings (TEDs) to both lower extremities- remove daily for hygiene ONLY Apply Sequential Compression Device (SCDs) to both Lower extremities remove for PT and hygiene ONLY Apply cold packs to affected area for 15 minutes every 2 hours. Physical Therapist will come to your home for the first 5 days. You will be set up with outpatient PT at your first post-operative visit. Patient may ambulate as tolerated-encourage self care (at least every 2-3 hours while awake) with walker or cane Maintain Aquacel (waterproof) dressing to operative wound (will be removed by surgeon at first office visit) Shower with Aquacel dressing in place-if Aquacel integrity compromised, remove and apply dry sterile dressing and notify Orthopedist. DO NOT SHOWER unless Orthopedists approves without Aquacel dressing CONTACT THE OFFICE FOR ANY CHANGE IN YOUR CONDITION (for example-fever greater than 102 degrees, excessive bleeding from operative site, purulent drainage, severe swelling or pain) GO TO THE EMERGENCY ROOM IF THERE IS A MEDICAL EMERGENCY Knee Precautions: * Keep a rolled towel under affected heel while in bed or chair (to keep knee in extension) * Keep affected leg elevated except during mealtimes * DO NOT PLACE PILLOW UNDER AFFECTED KNEE * If you have any questions, please do not hesitate to call the office - . Referrals: Casimiro Chiu MD [Staff Physician] - Disposition: VNS/HOME HEALTH CARE - Home Medications Comprehensive Discharge Medication List: Ambulatory Orders Amlodipine Besylate [Norvasc -] 5 mg PO DAILY 06/30/13 Lisinopril [Prinivil -] 40 mg PO DAILY 06/30/13 Insulin (Levemir) [Levemir Flexpen -] 34 units SQ HS 11/24/14 Atorvastatin Ca [Lipitor] 10 mg PO DAILY 06/16/19 Gabapentin 100 mg PO DAILY 06/16/19 Tadalafil [Cialis] 5 mg PO DAILY 06/16/19 Aspirin [ASA -] 325 mg PO DAILY@0800 tablet 06/24/19 Insulin Regular [Novolin R Vial -] 12 unit SQ ACDIN 06/24/19 Insulin Regular [Novolin R Vial -] 12 unit SQ HS 06/24/19 Insulin Regular [Novolin R Vial -] 20 unit SQ DAILY 06/24/19 Multivitamins [Multivit ([facility] Formulary)] 1 tab PO DAILY 06/24/19 Oxycodone HCl/Acetaminophen [Percocet 5-325 mg Tablet] 1 - 2 tab PO Q6H #50 tab MDD 8 06/24/19
--- NOTE | 2019-06-26 08:38 | PN ---
Progress Note (short form) - Note Progress Note: Ortho Pt seen and examined s/p right nigel tkr pod #2 Selected Entries 06/26/19 06:00 Temperature 99.2 F Pulse Rate 92 H Respiratory 18 Rate Blood Pressure 145/70 Laboratory Tests 06/26/19 05:15 WBC 13.1 H Hgb 11.8 Hct 36.0 Plt Count 181 dressing c/d/i, calf soft, nt rom 0-30, nvi a/p PT dvt ppx pain control d/c planning to snf for today/tomorrow
[2019-06-26] MEDS: LACTATED RINGERS SOLUTION 1,000 ML IV SCH (09:01)
[2019-06-26] MEDS: amLODIPine BESYLATE 5 MG TABLET (FP) PO SCH (09:24)
[2019-06-26] MEDS: GABAPENTIN 100 MG CAPSULE (FP) PO SCH (09:24)
[2019-06-26] MEDS: ATORVASTATIN CA 10 MG TABLET (FP) PO SCH (09:24)
[2019-06-26] MEDS: PANTOPRAZOLE 40 MG TABLET (FP) PO SCH (09:24)
[2019-06-26] MEDS: MULTIVITAMINS (DAILY MVI) TABLET (FP) PO SCH (09:24)
[2019-06-26] MEDS: SENNOSIDES/DOCUSATE COMBO (SENNA PLUS) TABLET (UD) PO SCH (09:25)
[2019-06-26] MEDS: LISINOPRIL 20 MG TABLET (FP) PO SCH (09:25)
[2019-06-26 11:35] VITALS: BP 142/74; PULSE 84; TEMP 97.9
--- NOTE | 2019-06-26 12:19 | PATH ---
Surgical Pathology Report Patient Name: DEJA NOVA Med. Rec. #: [id number] /Age/Gender: 1950 (Age: 68) / M Account: [id number] Location: [facility] MED-SURG Taken: 06/24/2019 Received: 06/24/2019 Reported: 06/26/2019 Physicians: Cody Orellana M.D. Specimen(s) Received BONES RIGHT KNEE Clinical History Osteoarthritis right knee Final Diagnosis BONES, RIGHT KNEE, TOTAL KNEE REPLACEMENT: DEGENERATIVE JOINT DISEASE. Electronically Signed Mojgan Brown M.D. Gross Description Received in formalin labeled "bones right knee," is an 11.5 x 9.0 x 2.2 cm aggregate of multiple portions of bone and soft tissue. The tibial plateau measures 7.8 x 6.0 x 2.0 cm. There is a 2.5 cm greatest dimension area of eburnation present. The remaining articular surfaces are downs-brown and diffusely granular. The underlying trabecular bone is yellow and hard. [employer] sections are submitted in one cassette, following decalcification. /06/25/2019 [facility]06/25/2019
== END 2019-06-26 12:22 | DRG 470 ==
LOC: FM/S 05:53
PROVIDERS: ADMIT Orthopaedic Surgery; ATTEND Orthopaedic Surgery
PROC: 8E0Y0CZ Robotic Assisted Procedure of Lower Extremity, Open Approach (ICD-10-PCS; 2019-06-24)
PROC: 0SRC0J9 Replacement of Right Knee Joint with Synthetic Substitute, Cemented, Open Approach (ICD-10-PCS; principal; 2019-06-24 08:47)
DX: M17.11 Unilateral primary osteoarthritis, right knee (principal)
CPT/HCPCS: 36415; 73560-TC-RT-FY; 82947; 82962; 85027; 94760; 97116-GP; 97162-GP